=== PATIENT | female | born 1930 | race Caucasian/White ===

== ENCOUNTER → 2016-11-29 | Outpatient (CLI) | payer MEDICARE, BC ==
[~2016-11-29] MED LIST: ASPIRIN PO; BYSTOLIC5 MG PO; CERTAGEN PO; LIPITOR PO; LISINOPRIL-HCTZ1 T14 PO; MAXZIDE 75/50 T1 TAB PO; [UNRECOGNIZED DRUG - REMARK]
--- NOTE | ~2016-11-29 | MY11 ---
[facility] A Service of [facility] RADIOLOGY TEXT RESULTS PATIENT: KIKE MARTÍNEZ LOCATION: [facility] : 31 UNIT #: [id number] AGE: [address]: SAGRARIO MAO DO SEX: F ORDER DR: [id number] [facility]. [place], [place] [address] [id number] O MR#: [id number] Acc #: [id number] NAME: KIKE MARTÍNEZ. : 1930 SEX: F STUDY DATE/TIME: 11/29/2016 13:29 UNIT: [facility] ROOM: STUDY DESCRIPTION: MY Mammogram Screening Dig Javier Attending Physician: Sagrario Mao D.O. Referring Physician: Sagrario Mao D.O. Ordering Physician: Sagrario Mao D.O. Primary Care Physician: Sagrario Mao D.O. MEDICAL IMAGING REPORT This report is preliminary unless electronic signature is present EXAM Bilateral digital screening mammogram with CAD. DATE OF EXAM 11/29/2016 INDICATIONS 86-year-old female for routine screening. No reported problems. No personal or family history of breast cancer. No surgeries. TECHNIQUE CC and MLO views of the breast were obtained and reviewed with an FDA-approved CAD device. COMPARISON 07/07/2015, 05/21/2014, 05/17/2013, 04/30/2012. FINDINGS Numerous mole markers are present bilaterally. Breast parenchyma is composed of scattered fibroglandular densities and unchanged. There is no new dominant nodule mass or suspicious clustered microcalcifications. Benign-appearing calcifications are present including vascular calcifications. Subareolar predominance on the left is unchanged from prior studies for technical factors. IMPRESSION Benign screening mammogram. 1 year followup recommended. Patients over the age of 40 are entered into a reminder system with target due date for the next mammogram. A result letter will also be sent to the patient. BIRADS: 2 Benign findings. [facility] A Service of [facility] & [facility] RADIOLOGY TEXT RESULTS PATIENT: KIKE MARTÍNEZ LOCATION: [facility] : 32 UNIT #: [id number] AGE: [address]: SAGRARIO MAO DO SEX: F ORDER DR: Dictated by... Marlo Read M.D. THIS IS AN ELECTRONICALLY VERIFIED REPORT Marlo Read M.D. at 11/30/2016 7:25 AM EMILY/gianna TD: 11/29/2016 17:59 JOB #: [id number] MEDICAL IMAGING REPORT COPY
== END | disposition home or self-care (01) ==
LOC: CWCC 12:57
DX: Z12.31 Encounter for screening mammogram for malignant neoplasm of breast (principal)
CPT/HCPCS: G0202